=== PATIENT | female | born 2000 | race American Indian/Alaskan Native ===

== ENCOUNTER 2021-06-06 18:06 | Emergency (ER) | payer SELFPAY ==
[2021-06-06 18:42] VITALS: BP 133/90
== END 2021-06-06 21:00 | disposition left against medical advice (07) ==
LOC: ED 18:06
DX: S69.92XA Unspecified injury of left wrist, hand and finger(s), initial encounter (principal); Z53.21 Procedure and treatment not carried out due to patient leaving prior to being seen by health care provider; X58.XXXA Exposure to other specified factors, initial encounter; Y93.89 Activity, other specified; Y92.89 Other specified places as the place of occurrence of the external cause; Y99.8 Other external cause status